=== PATIENT | male | born 1955 | race Caucasian/White ===

== ENCOUNTER 2017-01-26 01:12 | Emergency (ER) | payer MEDICAID ==
[~2017-01-26] VITALS: Ht 193 cm; Wt 110.9 kg
[~2017-01-26 01:12] MED LIST: ENAL2.5T PO; FLUT16SP2 NAS; TRAM100T2 PO; [UNRECOGNIZED DRUG - OTHER]
[2017-01-26 01:13] VITALS: BP 178/115
[2017-01-26] MEDS ORDERED: KETOROLAC 30 MG/1 ML IM ONE (02:00)
[2017-01-26] MEDS ORDERED: KETOROLAC 30 MG/1 ML ONE (02:11)
== END 2017-01-26 04:01 | disposition home or self-care (01) ==
LOC: ED 01:51
DX: M25.561 Pain in right knee (principal); I10 Essential (primary) hypertension
CPT/HCPCS: 73564; 96372; 99284; J1885

== ENCOUNTER 2017-05-09 10:13 | Emergency (ER) | payer MEDICAID ==
[~2017-05-09] VITALS: Ht 193 cm; Wt 114.1 kg
[2017-05-09 10:14] VITALS: BP 161/117
[2017-05-09] MEDS ORDERED: CEFDINIR 300 MG CAPSULE PO ONE (11:30)
== END 2017-05-09 11:49 | disposition home or self-care (01) ==
LOC: ED 11:43
DX: J20.9 Acute bronchitis, unspecified (principal); F51.01 Primary insomnia; I10 Essential (primary) hypertension
CPT/HCPCS: 71020; 99284

== ENCOUNTER 2019-12-24 08:26 | Emergency (ER) | payer MEDICAID ==
[~2019-12-24] VITALS: Ht 193 cm; Wt 115.0 kg
[~2019-12-24 08:26] MED LIST changes: -TRAM100T2 PO; +TRAM100T33 PO
[2019-12-24 08:31] VITALS: BP 155/93
--- NOTE | 2019-12-24 08:51 | NUR ---
PT STATES HE HAS GUM IN HIS L EAR. STATES HE HAS BEEN GETTING "WARM AT NIGHT" PT STATES HE HAS HAD INTERMITTANT COUGH X2 WEEKS. PT STAYING AT [facility] AT THIS TIME. PT AFEBRILE IN TRIAGE, PT UNABLE TO TAKE TEMPERATURE, HAS NO THERMOMETER
== END 2019-12-24 10:29 | disposition home or self-care (01) ==
LOC: ED 08:53
DX: T16.2XXA Foreign body in left ear, initial encounter (principal); H60.592 Other noninfective acute otitis externa, left ear; H60.12 Cellulitis of left external ear; R05 Cough; R09.81 Nasal congestion; I10 Essential (primary) hypertension; X58.XXXA Exposure to other specified factors, initial encounter; Y93.89 Activity, other specified; Y92.89 Other specified places as the place of occurrence of the external cause; Y99.8 Other external cause status
CPT/HCPCS: 71045; 99283

== ENCOUNTER 2020-02-10 05:40 | Emergency (ER) | payer MEDICAID ==
[~2020-02-10] VITALS: Ht 193 cm; Wt 113.7 kg
[2020-02-10 05:44] VITALS: BP 107/77
[2020-02-10] MEDS ORDERED: ACETAMINOPHEN 500 MG TABLET ONE (06:11)
--- NOTE | 2020-02-10 06:18 | NUR ---
PT TO ED WITH RIGHT LOWER EXTREMITY SWELLING X3 WEEKS, REPORTS THE PAIN HAS GOTTEN WORSE. PT REFUSED TYLENOL, STATES "I WANT A SHOT OF SOMETHING" THIS RN EDUCATED PT ON EXPECTED POC AND DISCUSSED WITH ERP. PT REFUSED TORADOL, NOTIFIED NO NARCOTIC MEDICATIONS AT THIS TIME. PT STATES "FINE ILL JUST LEAVE". PT STILL IN ROOM AT THIS TIME.
[2020-02-10] MEDS ORDERED: KETOROLAC 30 MG/1 ML IM ONE (06:30)
[2020-02-10] MEDS ORDERED: HYDROXYZINE PAMOATE 50MG CAP PO ONE (06:30)
[2020-02-10] MEDS ORDERED: ACETAMINOPHEN 500 MG TABLET PO ONE (06:30)
[2020-02-10] MEDS ORDERED: KETOROLAC 60 MG/2 ML ONE (06:33)
--- NOTE | 2020-02-10 07:04 | NUR ---
RECEIVED REPORT FROM SAMMY. LUANNAY AT BEDSIDE. RON REQUESTED FROM PHARMACY
--- NOTE | 2020-02-10 07:18 | NUR ---
PT NOT IN ROOM AND ALL BELONGINGS GONE
--- NOTE | 2020-02-10 07:27 | NUR ---
PROVIDER MADE AWARE PT LEFT AFTER XRAY AND RECEIVING TORADOL.
== END 2020-02-10 07:29 | disposition home or self-care (01) ==
LOC: ED 06:46
DX: M25.571 Pain in right ankle and joints of right foot (principal); M79.89 Other specified soft tissue disorders; I10 Essential (primary) hypertension
CPT/HCPCS: 73610; 96372; 99283; J1885